=== PATIENT | female | born 1990 | race Two or more races ===

== ENCOUNTER 2022-06-07 13:07 | Observation (INO) | payer MEDICAID, OTHER ==
[2022-06-07] MEDS ORDERED: DESV1TAB15 PO (15:06)
[2022-06-07] MEDS ORDERED: LAM100T OR (15:07)
== END 2022-06-07 15:27 | disposition home or self-care (01) ==
LOC: UNDOADMOB 13:07 → LDRP 13:07
PROVIDERS: ADMIT Obstetrics & Gynecology; ATTEND Obstetrics & Gynecology
DX: O69.81X0 Labor and delivery complicated by cord around neck, without compression, not applicable or unspecified (principal); O99.343 Other mental disorders complicating pregnancy, third trimester; F31.9 Bipolar disorder, unspecified; Z3A.34 34 weeks gestation of pregnancy
CPT/HCPCS: 59025; 76818; 81002; G0378

== ENCOUNTER 2022-06-11 07:25 | Observation (INO) | payer MEDICAID | END 2022-06-11 13:20 | disposition home or self-care (01) | LOC: LDRP 12:14 → UNDOADMOB 12:14 → LDRP 12:19 → UNDODISOB 13:20 | PROVIDERS: ADMIT Obstetrics & Gynecology; ATTEND Obstetrics & Gynecology | DX: O69.5XX0 Labor and delivery complicated by vascular lesion of cord, not applicable or unspecified (principal); Z3A.35 35 weeks gestation of pregnancy; Z87.891 Personal history of nicotine dependence | CPT/HCPCS: 59025; 81002; G0378 ==

== ENCOUNTER → 2022-06-11 | Outpatient (CLI) | payer MEDICAID ==
[~2022-06-11] MED LIST: DESV1TAB15 PO; LAM100T OR
[2022-06-11 13:50] LABS: Basophils # (auto) 0.1 10 ^3/uL (0-0.2); Basophils % (auto) 0.4 % (0.0-2.0); Eosinophils # (auto) 0.1 10 ^3/uL (0-0.8); Eosinophils % (auto) 0.5 % (0.0-7.0); Hematocrit 38.1 % (36.0-46.0); Hemoglobin 12.9 g/dL (12.2-16.2); Lymphocytes # (auto) 2.4 10 ^3/uL (0.4-5.4); Lymphocytes % (auto) 13.8 % (10.0-50.0); Mean Corpuscular Hemoglobin 29.3 pg (28.0-32.0); Mean Corpuscular Hgb Conc. 33.8 g/dL (32.0-36.0); Mean Corpuscular Volume 86.7 fL (80.0-100.0); Monocytes % (auto) 5.7 % (0.0-12.0); Neutrophils % (auto) 79.6 % (37.0-80.0); Red Blood Cells 4.39 10^6/uL (4.0-5.20); White Blood Cell 17.6 10^3/uL (4.4-10.8)
[2022-06-11 14:52] LABS: Amphetamine Screen, Urine NEGATIVE (NEGATIVE)
[2022-06-11 15:00] LABS: Barbiturate Scree,Urine NEGATIVE (NEGATIVE); Benzodiazephine Screen, Urine NEGATIVE (NEGATIVE); Cannabinoid Screen, Urine POSITIVE (NEGATIVE); Cocaine Screen, Urine NEGATIVE (NEGATIVE); Opiate Scree,Urine NEGATIVE (NEGATIVE); Phencyclidine Screen, Urine NEGATIVE (NEGATIVE)
[2022-06-12 07:07] LABS: RPR Non Reactive (Non Reactive)
== END | disposition home or self-care (01) ==
LOC: LAB 13:34
PROVIDERS: ATTEND Obstetrics & Gynecology
DX: Z34.00 Encounter for supervision of normal first pregnancy, unspecified trimester (principal); Z3A.00 Weeks of gestation of pregnancy not specified
CPT/HCPCS: 36415; 80307; 84112; 85025; 86592

== ENCOUNTER 2022-06-14 13:16 | Observation (INO) | payer MEDICAID | END 2022-06-14 14:40 | disposition home or self-care (01) | LOC: UNDOADMOB 13:33 → LDRP 13:33 → UNDODISOB 14:40 | PROVIDERS: ADMIT Obstetrics & Gynecology; ATTEND Obstetrics & Gynecology | DX: O69.89X0 Labor and delivery complicated by other cord complications, not applicable or unspecified (principal); Z3A.35 35 weeks gestation of pregnancy; Z87.891 Personal history of nicotine dependence | CPT/HCPCS: 59025; 76818; 81002; 94760; G0378 ==

== ENCOUNTER 2022-06-18 07:33 | Observation (INO) | payer MEDICAID ==
[~2022-06-18] VITALS: Ht 165.1 cm; Wt 88.5 kg
== END 2022-06-18 15:30 | disposition home or self-care (01) ==
LOC: LDRP 13:26 → UNDOADMOB 13:26 → LDRP 14:45 → UNDODISOB 15:30
PROVIDERS: ADMIT Obstetrics & Gynecology; ATTEND Obstetrics & Gynecology
DX: O69.89X0 Labor and delivery complicated by other cord complications, not applicable or unspecified (principal); Z3A.36 36 weeks gestation of pregnancy; Z87.891 Personal history of nicotine dependence
CPT/HCPCS: 59025; 81002; G0378

== ENCOUNTER 2022-06-21 08:07 | Observation (INO) | payer MEDICAID ==
[2022-06-21] MEDS ORDERED: PREN-96 PO (14:05)
== END 2022-06-21 14:42 | disposition home or self-care (01) ==
LOC: LDRP 13:10 → UNDOADMOB 13:10 → LDRP 13:19
PROVIDERS: ADMIT Obstetrics & Gynecology; ATTEND Obstetrics & Gynecology
DX: O69.89X0 Labor and delivery complicated by other cord complications, not applicable or unspecified (principal); Z3A.36 36 weeks gestation of pregnancy; Z87.891 Personal history of nicotine dependence
CPT/HCPCS: 59025; 76818; 81002; G0378

== ENCOUNTER 2022-06-25 09:24 | Observation (INO) | payer MEDICAID ==
[~2022-06-25 09:24] MED LIST changes: +PREN-96 PO
== END 2022-06-26 12:15 | disposition home or self-care (01) ==
LOC: LDRP 06-26 09:14
PROVIDERS: ADMIT Obstetrics & Gynecology; ATTEND Obstetrics & Gynecology
DX: O69.89X0 Labor and delivery complicated by other cord complications, not applicable or unspecified (principal); Z3A.37 37 weeks gestation of pregnancy
CPT/HCPCS: 59025; 76818; 81002; 94760; G0378

== ENCOUNTER → 2022-06-26 | Outpatient (CLI) | payer MEDICAID ==
[2022-06-26 11:25] LABS: Urine Bacteria NONE SEEN /hpf (None Seen); Urine Blood Negative /uL (Negative); Urine WBC 1 /hpf (0 - 5)
[2022-06-27 07:06] LABS: RPR Non Reactive (Non Reactive)
== END | disposition home or self-care (01) ==
LOC: LAB 10:57
DX: Z20.2 Contact with and (suspected) exposure to infections with a predominantly sexual mode of transmission (principal); Z20.1 Contact with and (suspected) exposure to tuberculosis; R74.01 Elevation of levels of liver transaminase levels; R21 Rash and other nonspecific skin eruption
CPT/HCPCS: 36415; 81001; 86592; 86706; 86735; 86762

== ENCOUNTER 2022-06-28 12:57 | Observation (INO) | payer MEDICAID | END 2022-06-28 14:25 | disposition home or self-care (01) | LOC: LDRP 12:57 → UNDOADMOB 12:57 → LDRP 13:36 | PROVIDERS: ADMIT Obstetrics & Gynecology; ATTEND Obstetrics & Gynecology | DX: O69.89X0 Labor and delivery complicated by other cord complications, not applicable or unspecified (principal); Z3A.37 37 weeks gestation of pregnancy; Z87.891 Personal history of nicotine dependence | CPT/HCPCS: 59025; 76818; 81002; G0378 ==

== ENCOUNTER 2022-07-02 08:43 | Observation (INO) | payer MEDICAID ==
[~2022-07-02] VITALS: Ht 165.1 cm; Wt 89.8 kg
== END 2022-07-09 12:15 | disposition home or self-care (01) ==
LOC: LDRP 07-09 10:28 → UNDOADMOB 07-09 10:28 → LDRP 07-09 10:33
PROVIDERS: ADMIT Obstetrics & Gynecology; ATTEND Obstetrics & Gynecology
DX: O69.89X0 Labor and delivery complicated by other cord complications, not applicable or unspecified (principal); Z3A.39 39 weeks gestation of pregnancy; Z87.891 Personal history of nicotine dependence
CPT/HCPCS: 59025; 76818; 81002; 94760; G0378

== ENCOUNTER 2022-07-05 08:45 | Observation (INO) | payer MEDICAID | END 2022-07-05 18:11 | disposition home or self-care (01) | LOC: LDRP 14:44 | PROVIDERS: ADMIT Obstetrics & Gynecology; ATTEND Obstetrics & Gynecology | DX: O69.89X0 Labor and delivery complicated by other cord complications, not applicable or unspecified (principal); Z3A.38 38 weeks gestation of pregnancy; Z87.891 Personal history of nicotine dependence | CPT/HCPCS: 59025; 76818; 81002; G0378 ==

== ENCOUNTER 2022-07-12 08:25 | Observation (INO) | payer MEDICAID | END 2022-07-12 16:48 | disposition home or self-care (01) | LOC: LDRP 15:00 | PROVIDERS: ADMIT Obstetrics & Gynecology; ATTEND Obstetrics & Gynecology | DX: O69.81X0 Labor and delivery complicated by cord around neck, without compression, not applicable or unspecified (principal); O62.9 Abnormality of forces of labor, unspecified; Z3A.39 39 weeks gestation of pregnancy | CPT/HCPCS: 59025; 76818; 81002; 94760; G0378 ==

== ENCOUNTER 2022-07-14 08:51 | Observation (INO) | payer MEDICAID ==
[~2022-07-14] VITALS: Ht 165.1 cm; Wt 89.8 kg
[2022-07-14] MEDS ORDERED: NALBUPHINE HCL 10 MG/1ml INJECTION IV ONE (11:00)
[2022-07-14] MEDS ORDERED: LACTATED RINGER'S 1,000 ML IV ONE (11:00)
== END 2022-07-14 12:50 | disposition home or self-care (01) ==
LOC: LDRP 08:51
PROVIDERS: ADMIT Obstetrics & Gynecology; ATTEND Obstetrics & Gynecology
DX: O62.9 Abnormality of forces of labor, unspecified (principal); Z3A.40 40 weeks gestation of pregnancy; Z87.891 Personal history of nicotine dependence; Z91.040 Latex allergy status
CPT/HCPCS: 59025; 76818; 81002; 94760; 96361; 96374; G0378; J2300

== ENCOUNTER 2022-07-14 22:01 | Inpatient (IN) | payer MEDICAID ==
[~2022-07-14] VITALS: Ht 167.6 cm; Wt 90.7 kg
[2022-07-14] MEDS ORDERED: fentaNYL CITRATE 100 MCG/2 ML VL IV ONE (22:45)
[2022-07-14] MEDS ORDERED: LACTATED RINGER'S 500 ML IV ONE ×2 (22:45)
[2022-07-15] MEDS ORDERED: LIDOCAINE 2%HCL (LOCAL ANESTH.) INJ 10ml MDV IJ PRN (01:00)
[2022-07-15] MEDS ORDERED: DERMOPLAST 60ML BOTTLE TOP PRN (01:00)
[2022-07-15] MEDS ORDERED: WITCH HAZEL-GLYCERIN PAD TOP PRN (01:00)
[2022-07-15] MEDS ORDERED: PROMETHAZINE HCL 25 MG/ML 1ML IV PRN (01:00)
[2022-07-15] MEDS ORDERED: PHISODERM TOP SOLN 240ML BTL TOP PRN (01:00)
[2022-07-15] MEDS ORDERED: BUTORPHANOL TARTRATE 2 MG/1 ML VIAL IV PRN ×2 (01:00)
[2022-07-15] MEDS ORDERED: LACTATED RINGER'S 1,000 ML IV ONE (01:30)
[2022-07-15 02:42] LABS: Basophils # (auto) 0 10 ^3/uL (0-0.2); Basophils % (auto) 0.2 % (0.0-2.0); Eosinophils # (auto) 0 10 ^3/uL (0-0.8); Eosinophils % (auto) 0.1 % (0.0-7.0); Hematocrit 39.7 % (36.0-46.0); Hemoglobin 13.7 g/dL (12.2-16.2); Lymphocytes # (auto) 1.7 10 ^3/uL (0.4-5.4); Lymphocytes % (auto) 8.5 % (10.0-50.0); Mean Corpuscular Hemoglobin 29.7 pg (28.0-32.0); Mean Corpuscular Hgb Conc. 34.5 g/dL (32.0-36.0); Mean Corpuscular Volume 86.1 fL (80.0-100.0); Monocytes # (auto) 0.8 10 ^3/uL (0-1.3); Monocytes % (auto) 4.1 % (0.0-12.0); Neutrophils # (auto) 17.4 10 ^3/uL (1.6-8.6); Neutrophils % (auto) 87.1 % (37.0-80.0); Red Blood Cells 4.61 10^6/uL (4.0-5.20); Red Cell Distribution Width 14.4 % (11.8-14.3); White Blood Cell 19.9 10^3/uL (4.4-10.8)
[2022-07-15 02:51] LABS: Urine Amorphous Crystal FEW /hpf (None Seen); Urine Bacteria FEW /hpf (None Seen); Urine Blood 1+ /uL (Negative); Urine Mucus FEW (None Seen); Urine WBC 3 /hpf (0 - 5)
[2022-07-15 02:53] LABS: Albumin 2.7 g/dL (3.4-5.0); Calcium 8.5 mg/dL (8.5-10.1); Potassium 4.1 mmol/L (3.5-5.1)
[2022-07-15 02:54] LABS: Alcohol, Urine < 3.0 mg/dL (0-10); Amphetamine Screen, Urine NEGATIVE (NEGATIVE); Barbiturate Scree,Urine NEGATIVE (NEGATIVE); Benzodiazephine Screen, Urine NEGATIVE (NEGATIVE); Cannabinoid Screen, Urine POSITIVE (NEGATIVE); Cocaine Screen, Urine NEGATIVE (NEGATIVE); Opiate Scree,Urine NEGATIVE (NEGATIVE); Phencyclidine Screen, Urine NEGATIVE (NEGATIVE)
[2022-07-15 02:55] LABS: BUN/Creatinine Ratio 10.2
[2022-07-15 02:58] LABS: Bilirubin, Total 0.6 mg/dL (0.2-1.0)
[2022-07-15 02:59] LABS: INR 0.91 (0.9-1.15); Partial Thromboplastin Time 30.3 sec (24.6-33.4)
[2022-07-15] MEDS ORDERED: PROMETHAZINE HCL 25 MG/ML 1ML IM PRN (03:00)
[2022-07-15] MEDS: LACTATED RINGER'S 1,000 ML IV SCH ×2 (04:11→15:40)
[2022-07-15] MEDS ORDERED: ROPIVACAINE HCL 200 ML EPI SCH ×2 (04:30→07:00)
[2022-07-15] MEDS ORDERED: NALOXONE HCL 0.4 MG/ML VIAL IV ONE (04:30)
[2022-07-15] MEDS ORDERED: ePHEDrine SULFATE 50 MG/ML AMP IV ONE (04:30)
[2022-07-15] MEDS ORDERED: miSOPROStol 50 MCG per PRE-CUT 1/2 TAB PO PRN (07:45)
[2022-07-15] MEDS ORDERED: LACT. RINGERS/OXYTOCIN 20UNITS 1,000 ML IV SCH (12:15)
[2022-07-15] MEDS ORDERED: TERBUTALINE SULFATE 1 MG/ML 1ML VIAL SC PRN (12:15)
[2022-07-15] MEDS ORDERED: LACT. RINGERS/OXYTOCIN 20UNITS 500 ML IV ONE ×2 (12:15→12:45)
[2022-07-15] MEDS ORDERED: DOCUSATE SOD 100 MG CAP PO PRN (18:30)
[2022-07-15] MEDS ORDERED: ONDANSETRON ODT 4 MG TAB PO PRN (18:30)
[2022-07-15] MEDS ORDERED: ACETAMINOPHEN 325 MG TAB PO PRN (18:30)
[2022-07-15 19:28] VITALS: BP 135/65
[2022-07-15 21:59] VITALS: BP 115/74
[2022-07-15] MEDS: lamoTRIgine 25 MG TAB PO SCH (22:00)
[2022-07-15] MEDS ORDERED: RHO (D) IMMUNE GLOBULIN 300 MCG INJ IM ONE (22:30)
[2022-07-16] MEDS: IBUPROFEN 800 MG TAB PO SCH ×4 (00:03→18:24)
[2022-07-16] MEDS ORDERED: TETANUS-DIPTH-ACEL PERTUSSIS 0.5ML SYR Tdap IM ONE (00:30)
[2022-07-16 03:00] VITALS: BP 115/74
[2022-07-16 06:06] LABS: RPR Non Reactive (Non Reactive)
[2022-07-16 07:00] VITALS: BP 110/69
[2022-07-16 11:30] VITALS: BP 115/73
[2022-07-16 15:30] VITALS: BP 119/77
[2022-07-16 19:00] VITALS: BP_SYST 125; BP_SYST 127; BP_DIAS 76; BP_DIAS 77
[2022-07-16 22:00] VITALS: BP 128/78
[2022-07-16] MEDS: lamoTRIgine 25 MG TAB PO SCH (22:00)
== END 2022-07-16 22:26 | disposition home or self-care (01) | DRG 560 ==
LOC: LDRP 22:01 → OBSVTOIN 07-15 00:52 → LDRP 07-15 01:20
PROVIDERS: ADMIT Obstetrics & Gynecology; ATTEND Obstetrics & Gynecology
PROC: 10E0XZZ Delivery of Products of Conception, External Approach (ICD-10-PCS; principal; 2022-07-15)
PROC: 0HQ9XZZ Repair Perineum Skin, External Approach (ICD-10-PCS; 2022-07-15)
PROC: 3E0R3BZ Introduction of Anesthetic Agent into Spinal Canal, Percutaneous Approach (ICD-10-PCS; 2022-07-15)
PROC: 00HU33Z Insertion of Infusion Device into Spinal Canal, Percutaneous Approach (ICD-10-PCS; 2022-07-15)
DX: O63.0 Prolonged first stage (of labor) (principal); Z37.0 Single live birth; O99.344 Other mental disorders complicating childbirth; F31.9 Bipolar disorder, unspecified; F60.3 Borderline personality disorder; Z20.822 Contact with and (suspected) exposure to COVID-19; O77.0 Labor and delivery complicated by meconium in amniotic fluid; O70.0 First degree perineal laceration during delivery; Z3A.40 40 weeks gestation of pregnancy
CPT/HCPCS: 36415; 59025; 59409; 62282; 80053; 80307; 81001; 81002; 85025; 85610; 85730; 86592; 86850; 86870; 86900; 86901; 87426; 90384; 90715; 94760; 96360; 96361; 96366; 96372; 96374; G0378; J2590